=== PATIENT | male | born 1995 | race Two or more races ===

== ENCOUNTER 2017-05-19 03:44 | Emergency (ER) | payer SELFPAY ==
[2017-05-19 04:02] VITALS: TEMP 97.8
--- NOTE | 2017-05-19 04:35 | ED PDOC ---
HPI: Psych/Substance Abuse Time Seen by Provider: 05/19/17 03:55 Chief Complaint (Nursing): Trauma History Per: EMS Additional Complaint(s): Pt. found by EMS lying down outside. Admits to drinking alcohol. Pt. does not remember falling. Offers no complaints at this time. Past Medical History Reviewed: Historical Data, Nursing Documentation, Vital Signs Vital Signs: Last Vital Signs Temp 97.8 F 05/19/17 03:59 Pulse 111 H 05/19/17 03:59 Resp 16 05/19/17 03:59 BP 130/76 05/19/17 03:59 Pulse Ox 98 05/19/17 03:59 - Medical History PMH: Asthma, Fractures (Collar bone Fx) - Family History Family History: States: No Known Family Hx - Allergies Allergies/Adverse Reactions: Allergies Allergy/AdvReac Type Severity Reaction Status Date / Time Penicillins Allergy RASH Verified 05/19/17 03:58 Review of Systems ROS Statement: Except As Marked, All Systems Reviewed And Found Negative Physical Exam - Physical Exam Appears: Positive for: Well, Non-toxic, No Acute Distress Head Exam: Negative for: ATRAUMATIC, NORMAL INSPECTION, NORMOCEPHALIC ( superficial abrasion on occipital scalp with mild surrounding edema) Skin: Positive for: Normal Color, Warm. Negative for: Rash Eye Exam: Positive for: EOMI, Normal appearance, PERRL ENT: Positive for: Normal ENT Inspection, TM Is/Are (no hemotympanum b/l) Neck: Positive for: Normal, Painless ROM Cardiovascular/Chest: Positive for: Regular Rate, Rhythm, Chest Non Tender Respiratory: Positive for: Normal Breath Sounds. Negative for: Respiratory Distress Gastrointestinal/Abdominal: Positive for: Normal Exam, Bowel Sounds, Soft, Other (no ecchymosis). Negative for: Tenderness Back: Positive for: Normal Inspection. Negative for: L CVA Tenderness, R CVA Tenderness, Vertebral Tenderness (including cervical spine) Extremity: Positive for: Normal ROM, Other (superficial abrasion noted to R forearm; L distal leg with superficial abrasion; no tenderness, swelling, deformity to extremities). Negative for: Tenderness, Pedal Edema, Calf Tenderness, Deformity, Swelling Neurologic/Psych: Positive for: Alert, Gait (unsteady), Other (AOB; slurred speech). Negative for: Aphasia, Facial Droop - ECG O2 Sat by Pulse Oximetry: 98 - Progress ED Course And Treament: CT head w/o contrast: no ICH CT cervical spine w/o contrast: no fx Disposition - Clinical Impression Clinical Impression: Alcohol intoxication - Patient ED Disposition Is Patient to be Admitted: Transfer of Care (Signed out to Dr. Olguin pending sobriety.) - Disposition Disposition: Routine/Home Disposition Time: 06:00 Condition: STABLE Forms: [employer] (Honduran)
--- NOTE | 2017-05-19 06:24 | ED PDOC ---
- ECG O2 Sat by Pulse Oximetry: 98 (RA) Pulse Ox Interpretation: Normal Medical Decision Making Medical Decision Making: Time: 0600 --Patient was endorsed to provider by Jack Ndiaye PA-C. Pending clinical sobriety. Time: 0700 --Patient signed out to Dr. Mj Abad III. Pending clinical sobriety. Scribe Attestation: Documented by Safia Montiel, acting as a scribe for Gary Olguin MD. Provider Scribe Attestation: All medical record entries made by the Scribe were at my direction and personally dictated by me. I have reviewed the chart and agree that the record accurately reflects my personal performance of the history, physical exam, medical decision making, and the department course for this patient. I have also personally directed, reviewed, and agree with the discharge instructions and disposition. Disposition - Clinical Impression Clinical Impression: Alcohol intoxication - POA Present On Arrival: None - Disposition Referrals: [facility] [Outside] Disposition: Transfer of Care Disposition Time: 07:00 Condition: STABLE Additional Instructions: Recommend alcohol in moderation only. Instructions: Abuse of Alcohol (ED) Forms: [employer] (Danish) Patient Signed Over To: Mj Abad III
--- NOTE | 2017-05-19 07:10 | ED PDOC ---
- ECG O2 Sat by Pulse Oximetry: 98 (RA) Medical Decision Making Medical Decision Makin:00 Patient signed out to provider by Dr. Olguin pending clinical sobriety. 830am awake, ambulating w/ stable gait, clear speech, stable vitals. DC from ED. Scribe Attestation: Documented by Monse Bravo, acting as a scribe for Mj Abad III, DO. Provider Scribe Attestation: All medical record entries made by the Scribe were at my direction and personally dictated by me. I have reviewed the chart and agree that the record accurately reflects my personal performance of the history, physical exam, medical decision making, and the department course for this patient. I have also personally directed, reviewed, and agree with the discharge instructions and disposition. Disposition - Clinical Impression Clinical Impression: Alcohol intoxication - POA Present On Arrival: None - Disposition Referrals: [facility] [Outside] Disposition: Routine/Home Disposition Time: 08:50 Condition: STABLE Additional Instructions: Recommend alcohol in moderation only. Instructions: Abuse of Alcohol (ED) Forms: [employer] (Tajik)
[2017-05-19 07:30] VITALS: RESP 18
--- NOTE | 2017-05-19 08:40 | CT ---
PROCEDURE: CT HEAD WITHOUT CONTRAST. HISTORY: trauma COMPARISON: None available. TECHNIQUE: Axial computed tomography images were obtained through the head/brain without intravenous contrast. Radiation dose: Total exam DLP = mGy-cm. This CT exam was performed using one or more of the following dose reduction techniques: Automated exposure control, adjustment of the mA and/or kV according to patient size, and/or use of iterative reconstruction technique. FINDINGS: HEMORRHAGE: No intracranial hemorrhage. BRAIN: Jack-white matter differentiation is preserved. There is no mass, mass effect or abnormal extra-axial fluid collection. VENTRICLES: The ventricles are normal in size, shape and configuration. CALVARIUM: Unremarkable. PARANASAL SINUSES: There is a large retention cyst/ polyp in the left maxillary sinus and mild mucosal thickening in the left ethmoid air cells. The remaining included paranasal sinuses are clear. MASTOID AIR CELLS: Unremarkable as visualized. No inflammatory changes. OTHER FINDINGS: . None. IMPRESSION: No acute intracranial abnormality. A preliminary report was provided by [facility] [facility].
--- NOTE | 2017-05-19 08:44 | CT ---
PROCEDURE: CT Cervical Spine without contrast HISTORY: Trauma COMPARISON: None available. TECHNIQUE: Axial computed tomography images were obtained of the cervical spine without the use of intravenous contrast. Coronal and sagittal reformatted images were created and reviewed. Radiation dose: Total exam DLP = mGy-cm. This CT exam was performed using one or more of the following dose reduction techniques: Automated exposure control, adjustment of the mA and/or kV according to patient size, and/or use of iterative reconstruction technique. FINDINGS: VERTEBRAE: There is straightening of the cervical spine with loss of normal cervical lordosis. Vertebral alignment is normal. Vertebral height is maintained. There is no acute fracture or traumatic anterior listhesis. The craniocervical junction is normal. The atlantoaxial joint is normal DISCS/SPINAL CANAL/NEURAL FORAMINA: No significant central canal or neural foraminal stenosis. Discs heights are grossly preserved. PARASPINAL SOFT TISSUES: Unremarkable. OTHER FINDINGS: No prevertebral soft tissue swelling. The lung apices are clear. IMPRESSION: No acute fracture or traumatic anterior listhesis. Straightening of the cervical spine may be positional or related to muscle spasm. A preliminary report was provided by [employer] [facility].
[2017-05-19 08:49] VITALS: BP 126/61; PULSE 86
[2017-05-19 23:35] VITALS: O2SAT 98
== END 2017-05-19 08:48 | disposition home or self-care (01) ==
LOC: H.ER 03:44
DX: F10.129 Alcohol abuse with intoxication, unspecified (principal); S09.90XA Unspecified injury of head, initial encounter; W19.XXXA Unspecified fall, initial encounter; Y92.89 Other specified places as the place of occurrence of the external cause; J45.909 Unspecified asthma, uncomplicated; Z88.0 Allergy status to penicillin
CPT/HCPCS: 70450; 72125; 82948; 99285; G0480